=== PATIENT | female | born 2000 | race Caucasian/White ===

== ENCOUNTER 2022-09-27 11:26 | Outpatient (RCR) | payer OTHER, SELFPAY ==
[2022-09-28] MEDS: RHO(D) IMMUNE GLOBULIN 300 MCG/2 ML SYRINGE IM (12:27)
== END 2022-12-26 23:59 | disposition home or self-care (01) ==
LOC: ANHLAB 11:26
PROVIDERS: Visit Provider Obstetrics & Gynecology
DX: Z29.13 Encounter for prophylactic Rho(D) immune globulin (principal); O36.0190 Maternal care for anti-D [Rh] antibodies, unspecified trimester, not applicable or unspecified; Z3A.00 Weeks of gestation of pregnancy not specified
CPT/HCPCS: 36415; 85461; 86850; 86900; 86901; 90384; 96372; J2790

== ENCOUNTER 2022-10-18 11:11 | Outpatient (CLI) | payer OTHER, SELFPAY ==
[2022-10-18 11:31] VITALS: BP 123/74; PULSE 115
[2022-10-18 11:46] VITALS: BP 127/59; PULSE 98
[2022-10-18 12:10] LABS: Basophils Percent Auto 0.3 % (0.2-1.2); Hematocrit 31.6 % (37.0-47.0); Hemoglobin 10.9 g/dL (12.0-15.0); Immature Granulocyte Absolute 0.12 K/mm3 (0.00-0.031); Immature Granulocyte Percent A 0.9 % (0-0.5); Lymphocytes Absolute Auto 1.94 K/mm3 (0.9-3.2); Lymphocytes Percent Auto 13.9 % (18.3-44.2); Mean Corpuscular HGB Conc 34.5 g/dl (32-36); Mean Corpuscular Hemoglobin 31.1 pg (26-34); Mean Corpuscular Volume 90.3 fl (80-100); Mean Platelet Volume 9.1 fl (7.4-10.4); Monocytes Absolute Auto 0.9 K/mm3 (0.1-0.6); Monocytes Percent Auto 6.2 % (2.6-8.5); Neutrophils Percent Auto 78.7 % (45.5-73.1); Platelet Count Result 239 k/mm3 (150-375); Red Cell Distribution Width 13.7 % (11.5-14.5)
[2022-10-18 12:16] LABS: Creatinine Urine 66.1 mg/dL; Total Protein Urine Random 20 mg/dL
[2022-10-18 12:19] LABS: Anion Gap 8 mmol/L (8-16); Blood Urea Nitrogen 6 mg/dL (7-17); Carbon Dioxide 21 mmol/L (22-30); Chloride 106 mmol/L (98-107); Estimated Glomerular Filt Rate > 60; Glucose 107 mg/dL (65-110); Potassium 3.4 mmol/L (3.4-5.0); Sodium 135 mmol/L (137-145)
[2022-10-18 12:20] LABS: Alanine Aminotransferase 28 U/L (6-35); Albumin Level 3.6 g/dL (3.5-5.1); Alkaline Phosphatase 74 U/L (38-126); Aspartate Amino Transferase 25 U/L (14-36); Bilirubin,Total 0.8 mg/dL (0.2-1.3); Calcium 9.8 mg/dL (8.4-10.2); Uric Acid 3.8 mg/dL (2.5-7.5)
[2022-10-18 12:31] LABS: Appearance Urine Turbid (Clear); Bacteria Urine 3+ /hpf; Bilirubin Urine Negative (Negative); Blood Urine Negative (Negative); Color Urine Yellow (Yellow); Glucose Urine UA Negative (Negative); Ketones Urine Negative (Negative); Leukocyte Esterase Ur 1+ LEU/UL (NEGATIVE); Need Manual Microscopic Reviewed; Nitrate Urine Negative (Negative); Protein Urine Negative (Negative); RBC Urine 0-2 /hpf (0-2); Specific Grav Ur 1.011 (1.001-1.035); Squamous Epithelial Cell Urine Many /hpf (Few); Urobilinogen Urine 0.2 mg/dL (<2.0); WBC Urine 21-50 /hpf (0-3); pH Urine 7.5 (5.0-9.0)
[2022-10-18 12:33] LABS: Add Urine Microscopic? YES
--- NOTE | 2022-10-18 12:42 | PC.NURSE ---
Dr Cano notified of lab results and BP's, Ok to [facility].
[2022-10-18 12:43] VITALS: BP 123/74; PULSE 112
--- NOTE | 2022-10-18 12:58 | PM.OBTRLD ---
OB - Triage/Final Diagnosis Visit Information Date of evaluation: 10/18/22 Reason for evaluation: other (Gestational hypertension) Comments/Additional reasons for admission: I have assessed the risk for this patient, Grace Holbrook, and determined that she would benefit from observation care. Evaluation Laboratory results: Laboratory Tests 10/18/22 10/18/22 10/18/22 11:48 11:48 11:48 WBC 14.0 H RBC 3.50 L Hgb 10.9 L Hct 31.6 L MCV 90.3 MCH 31.1 MCHC 34.5 RDW 13.7 Plt Count 239 MPV 9.1 Immature Gran % (Auto) 0.9 H Neut % (Auto) 78.7 H Lymph % (Auto) 13.9 L [place] % (Auto) 6.2 Eos % (Auto) 0.0 Baso % (Auto) 0.3 Lymph # (Auto) 1.94 [place] # (Auto) 0.9 H Eos # (Auto) 0.0 Baso # (Auto) 0.0 Abs Immat Gran (auto) 0.12 H Absolute Neuts (auto) 11.0 H Absolute Nucleated RBC 0.0 Nucleated RBC % 0.0 Sodium Potassium Chloride Carbon Dioxide Anion Gap BUN Creatinine Estim Creat Clear Calc Estimated GFR Glucose Uric Acid Calcium Total Bilirubin AST ALT Alkaline Phosphatase Total Protein Albumin Urine Color Yellow Urine Appearance Turbid H Urine pH 7.5 Ur Specific [place] 1.011 Urine Protein Negative Urine Glucose (UA) Negative Urine Ketones Negative Ur Blood (Man) Negative Urine Nitrate Negative Urine Bilirubin Negative Urine Urobilinogen 0.2 Ur Leukocyte Esterase 1+ H Add Ur Microanalysis Reviewed Urine RBC 0-2 Urine WBC 21-50 Ur Squamous Epith Cells Many H Urine Bacteria 3+ H Urine Casts 6-10 U Random Total Protein 20 Urine Creatinine 66.1 Protein/Creat Ratio 2 0.30 H 10/18/22 11:48 WBC RBC Hgb Hct MCV MCH MCHC RDW Plt Count MPV Immature Gran % (Auto) Neut % (Auto) Lymph % (Auto) [place] % (Auto) Eos % (Auto) Baso % (Auto) Lymph # (Auto) [place] # (Auto) Eos # (Auto) Baso # (Auto) Abs Immat Gran (auto) Absolute Neuts (auto) Absolute Nucleated RBC Nucleated RBC % Sodium 135 L Potassium 3.4 Chloride 106 Carbon Dioxide 21 L Anion Gap 8 BUN 6 L Creatinine 0.40 L Estim Creat Clear Calc Not Reportable Estimated GFR > 60 Glucose 107 Uric Acid 3.8 Calcium 9.8 Total Bilirubin 0.8 AST 25 ALT 28 Alkaline Phosphatase 74 Total Protein 6.0 L Albumin 3.6 Urine Color Urine Appearance Urine pH Ur Specific [place] Urine Protein Urine Glucose (UA) Urine Ketones Ur Blood (Man) Urine Nitrate Urine Bilirubin Urine Urobilinogen Ur Leukocyte Esterase Add Ur Microanalysis Urine RBC Urine WBC Ur Squamous Epith Cells Urine Bacteria Urine Casts U Random Total Protein Urine Creatinine Protein/Creat Ratio 2 Vital signs: Vital Signs - 24 hr 10/18/22 11:31 10/18/22 11:46 10/18/22 12:43 Pulse Rate 115 H 98 112 H Blood Pressure 123/74 127/59 L Blood Pressure [Left Arm] 123/74
== END 2022-10-18 12:43 | disposition home or self-care (01) ==
LOC: ANHOBOP 11:17 → ANHOBPP 11:21
PROVIDERS: Visit Provider Obstetrics & Gynecology
DX: O13.9 Gestational [pregnancy-induced] hypertension without significant proteinuria, unspecified trimester (principal)
CPT/HCPCS: 36415; 59025; 80053; 81001; 82570; 84156; 84550; 85025; 87086; 87088; 99199

== ENCOUNTER 2022-10-25 16:42 | Inpatient (IN) | payer OTHER, SELFPAY ==
[2022-10-25] VITALS (11 sets, daily range): BP systolic 124–150; BP diastolic 82–102; PULSE 88–117; RESP 16; TEMP 36.5–36.8; BMI 35.9
--- NOTE | 2022-10-25 17:03 | LDADM ---
This patient, Grace Holbrook, was admitted to Labor/Delivery/Recovery 109 on 10/25/22 at 16:42. Plans for labor, pain management and were discussed with patient. Patient/family oriented to hospital policies and general routines including ID bracelet, bed and alarms, visiting hours, pain management, procedures, bathroom and other care routines, personal items, smoking policy, room service/diet and guest tray routines, security routines, and visiting hours. Patient/Family are encouraged to report perceived risks to care and to ask questions if they do not understand what they are told or what they should do. See OBIX for further documentation.
--- NOTE | 2022-10-25 17:20 | P.PNAN_ITS ---
Anes - Eval Pre Procedure Procedure: Labor epidural Date/Time: 10/25/22 17:20 Pre Op Diagnosis: Induction of Labor Patient Data Age: 22 Gender: F Height: 1.63 m Weight: 95 kg Last Vital Signs Pulse 117 H 10/25/22 16:59 BP 133/92 H 10/25/22 16:59 O2 Del Method Room Air 10/25/22 17:00 Allergies Allergy/AdvReac Type Severity Reaction Status Date / Time clindamycin Allergy Rash Verified 10/25/22 17:09 Home Medications Medication Instructions Recorded Confirmed Type labetalol 200 mg tablet 200 mg PO Q8H 10/05/22 10/05/22 History nifedipine 10 mg capsule 10 mg PO Q8H 10/05/22 10/05/22 History vit no.95-ferrous 1 tablet PO DAILY 10/05/22 10/05/22 History fumarate 28 mg-folic acid 800 mcg tablet () albuterol sulfate 90 mcg/actuation inhalation 10/25/22 History aerosol inhaler Patient hx anesthesia problems: none Family hx anesthesia problems: none Results Review: All pre-operative results and documents have been reviewed as part of the pre- operative evaluation. [facility] Past Medical History Medical History Asthma Bronchitis Eczema PIH ( induced hypertension) Scoliosis Family History Family History Father Hypertension Mother Hypertension Grandparent Breast cancer in female Dementia Diabetes mellitus Social History Social History Smoking status: Former smoker Tobacco type: cigarettes Smoking end date: 03/10/23 Substance use: former Last use: 03/2023 Lack of Transportation: No Lack of Food: Never True Current Housing: I Have Housing Concerned About Future Housing: No Difficulty Paying Gas/Electric Bills: No Difficulty Paying for Meds: No Currently Unemployed: No Education: High School Diploma/GED Difficulty w/ Childcare or Family Care: No Spiritual care concerns: No Exam Day of Procedure 10/25/22 17:20 Patient weight: obese Heart: regular rate and rhythm Lungs: normal air movement Airway: Mallampati scale Neurological: alert and oriented
[2022-10-25 17:43] LABS: Basophils Absolute Auto 0.1 K/mm3 (0.0-0.1); Basophils Percent Auto 0.4 % (0.2-1.2); Hematocrit 31.8 % (37.0-47.0); Hemoglobin 11.1 g/dL (12.0-15.0); Immature Granulocyte Absolute 0.16 K/mm3 (0.00-0.031); Immature Granulocyte Percent A 1.1 % (0-0.5); Lymphocytes Absolute Auto 2.31 K/mm3 (0.9-3.2); Lymphocytes Percent Auto 16.3 % (18.3-44.2); Mean Corpuscular HGB Conc 34.9 g/dl (32-36); Mean Corpuscular Hemoglobin 30.8 pg (26-34); Mean Corpuscular Volume 88.3 fl (80-100); Mean Platelet Volume 9.2 fl (7.4-10.4); Monocytes Absolute Auto 0.9 K/mm3 (0.1-0.6); Neutrophils Absolute Auto 10.8 K/mm3 (1.3-6.7); Neutrophils Percent Auto 76.2 % (45.5-73.1); Platelet Count Result 229 k/mm3 (150-375); Red Cell Distribution Width 13.6 % (11.5-14.5); White Blood Count 14.2 K/mm3 (4.5-10.0)
[2022-10-25] MEDS: DINOPROSTONE 10 MG VAG INSERT VAGINAL (17:45)
[2022-10-25 17:52] LABS: Alanine Aminotransferase 43 U/L (6-35); Albumin Level 3.7 g/dL (3.5-5.1); Alkaline Phosphatase 84 U/L (38-126); Anion Gap 7 mmol/L (8-16); Aspartate Amino Transferase 32 U/L (14-36); Bilirubin,Total 0.9 mg/dL (0.2-1.3); Blood Urea Nitrogen 6 mg/dL (7-17); Calcium 9.5 mg/dL (8.4-10.2); Carbon Dioxide 22 mmol/L (22-30); Chloride 106 mmol/L (98-107); Estimated CRCL calculation 197 ml/min; Estimated Glomerular Filt Rate > 60; Glucose 97 mg/dL (65-110); Potassium 3.6 mmol/L (3.4-5.0); Sodium 135 mmol/L (137-145)
[2022-10-25] MEDS: LABETALOL HCL 100 MG TABLET 200 MG PO (22:21)
[2022-10-26] VITALS (244 sets, daily range): BP systolic 101–149; BP diastolic 41–108; PULSE 49–144; RESP 16–18; TEMP 36.2–37.3; O2SAT 82–100
[2022-10-26 04:39] LABS: Uric Acid 3.7 mg/dL (2.5-7.5)
[2022-10-26] MEDS: AMPICILLIN 2 GM/NS 100 ML 2 GM/100 ML BAG IVPB (05:58)
[2022-10-26] MEDS: LACTATED RINGERS 1,000 ML 125 ML IV CONT ×4 (05:58→22:19)
[2022-10-26] MEDS: OXYTOCIN 30 UNITS/NS 500 ML 30 UNITS/500 ML BAG 6 UNITS IV CONT (05:59)
[2022-10-26] MEDS: LABETALOL HCL 100 MG TABLET 200 MG PO ×3 (06:01→22:05)
--- NOTE | 2022-10-26 06:06 | PM.IMHP ---
H&P: HPI History of Present Illness Date/Time: 10/26/22 06:06 Chief Complaint: Hypertension at 3667 weeks Narrative: this is the result room if admitted at 36 and 6 7th weeks gestation admitted for were induction of labor secondary to elevated blood pressures. She has been on labetalol and the had nifedipine added. Her pressures are high and she is feeling protein. She has a mildly elevated blood pressure PI labs were normal. Group B strep screen is pending [facility] Past Medical History Medical History Asthma Bronchitis Eczema PIH ( induced hypertension) Scoliosis Family History Family History Father Hypertension Mother Hypertension Grandparent Breast cancer in female Dementia Diabetes mellitus Social History Social History Smoking status: Former smoker Tobacco type: cigarettes Smoking end date: 03/10/23 Substance use: former Last use: 03/2023 Lack of Transportation: No Lack of Food: Never True Current Housing: I Have Housing Concerned About Future Housing: No Difficulty Paying Gas/Electric Bills: No Difficulty Paying for Meds: No Currently Unemployed: No Education: High School Diploma/GED Difficulty w/ Childcare or Family Care: No Spiritual care concerns: No Meds Home Medications and Allergies Home Medications Medication Instructions Recorded Confirmed Type labetalol 200 mg tablet 200 mg PO Q8H 10/05/22 10/25/22 History nifedipine 10 mg capsule 10 mg PO Q8H 10/05/22 10/25/22 History vit no.95-ferrous 1 tablet PO DAILY 10/05/22 10/25/22 History fumarate 28 mg-folic acid 800 mcg tablet () albuterol sulfate 90 mcg/actuation inhalation 10/25/22 History aerosol inhaler Allergies Allergy/AdvReac Type Severity Reaction Status Date / Time clindamycin Allergy Rash Verified 10/25/22 17:09 Vital Signs Vital Signs - 24 hr 10/25/22 17:00 10/25/22 16:59 10/25/22 18:00 Temperature Pulse Rate 117 H 88 Respiratory Rate Blood Pressure 133/92 H 149/99 H Oxygen Delivery Room Air 10/25/22 18:15 10/25/22 18:30 10/25/22 18:45 Temperature 98.3 F Pulse Rate 95 97 97 Respiratory Rate 16 Blood Pressure 150/101 H 137/102 H 124/91 H Oxygen Delivery 10/25/22 19:00 10/25/22 19:15 10/25/22 19:30 Temperature Pulse Rate 97 92 92 Respiratory Rate Blood Pressure 134/83 132/85 132/87 Oxygen Delivery 10/25/22 19:45 10/25/22 19:58 10/25/22 22:21 Temperature 97.7 F Pulse Rate 106 H 94 92 Respiratory Rate 16 Blood Pressure 132/91 H 131/84 126/82 Oxygen Delivery 10/26/22 01:12 10/26/22 05:18 10/26/22 05:20 Temperature 98.4 F 97.7 F Pulse Rate 92 91 Respiratory Rate 16 18 Blood Pressure 122/70 138/94 H Oxygen Delivery 10/25/22 19:01 10/25/22 22:21 10/26/22 06:01 Temperature Pulse Rate 92 100 Respiratory Rate Blood Pressure Oxygen Delivery Room Air Exam Const: General: cooperative, healthy appearing and comfortable Nutritional Appearance: overweight Orientation/consciousness: oriented to person, oriented to place and oriented to time HENMT: Head: normal to inspection Resp: Effort & Inspection: normal respiratory effort Cardio: Rate: regular rate Rhythm: regular rhythm Heart sounds: S1 normal heart sound present and S2 normal heart sound present GI: Inspection: normal to inspection ( gravid soft uterus) : External Female Exam: normal external appearance Speculum Exam - Vagina: normal appearance of the vagina Speculum Exam - Cervix: normal appearance of the cervix ( 1/2cm/ 50%/ -2. AROM minimal clear fluid. FHTs reassuring) H&P: Results Labs Labs: Short CBC 10/25/22 Range/Units 17:04 WBC 14.2 H (4.5-10.0) K/mm3 Hgb 11.1 L (12.0-15.0) g/dL Hct 31.8 L (
[2022-10-26 07:20] LABS: Rapid Plasma Reagin Non-Reactive (NonReactive)
[2022-10-26] MEDS: AMPICILLIN 1 GM/NS 50 ML 1 GM/50 ML BAG IVPB ×4 (10:18→22:05)
--- NOTE | 2022-10-26 12:40 | PM.OBPNLAB ---
Pain Control Date/time seen: 10/26/22 12:40 Pain control: tolerating well Comments: bp labile Pelvic Exam Dilation (cm): 1 Effacement (%): 50 station: -2 Amniotic membrane status: Leaking Contractions Monitor mode: Internal
[2022-10-26] MEDS: fentaNYL CITRATE INJ (*CRX) 100 MCG/2 ML VIAL IV PUSH (13:17)
--- NOTE | 2022-10-26 16:07 | PM.OBPNLAB ---
Pain Control Date/time seen: 10/26/22 16:07 Pain control: tolerating well and epidural Pelvic Exam Dilation (cm): 2 Effacement (%): 50 station: -2 Amniotic membrane status: Leaking Contractions Monitor mode: Internal Contraction pattern: Regular
[2022-10-27] VITALS (108 sets, daily range): BP systolic 103–150; BP diastolic 53–109; PULSE 86–145; RESP 16–18; TEMP 36.9–37.2; O2SAT 96–100
[2022-10-27] MEDS: AMPICILLIN 1 GM/NS 50 ML 1 GM/50 ML BAG IVPB (02:25)
--- NOTE | 2022-10-27 05:54 | PM.OBPRVD ---
OB - Delivery Note Procedure Delivery date: 10/27/22 Procedure: mil Events: Chronic Hypertension Induction method: AROM and Per Cervidil Protocol Delivery augmentation: Pitocin Delivery monitor: External FHT and Internal FHT Route of delivery: Laceration Description: Perineal - 2nd Degree Delivery repair: vicryl Specimen: No Quantitative Blood Loss (ml): 60 Anesthesia type: Epidural Disposition: Floor Baby Date of : 10/27/22 Time of : 05:41 Weeks of gestation at delivery: 37 Infant gender: Female presentation: vertex position: Right Occiput Anterior Placenta delivery description: Spontaneous Cord Vessel Description: 3 Vessels, Nuchal Cord, Loose and Delayed Cord Clamping score one minute: 8 score five minutes: 9 Narrative: amp x 6 unknown gbs
[2022-10-27] MEDS: OXYTOCIN 30 UNITS/NS 500 ML 30 UNITS/500 ML BAG 125 UNITS IV CONT (06:19)
[2022-10-27] MEDS: IBUPROFEN 600 MG TABLET PO ×2 (06:28→16:43)
[2022-10-27] MEDS: BENZOCAINE 20% AER SPR (*SP) 56 GM CAN 1 SPRAY TOPICAL (06:29)
[2022-10-27] MEDS: WITCH HAZEL 40 PADS 1 PAD TOPICAL (06:29)
[2022-10-27] MEDS: ACETAMINOPHEN 325 MG TABLET 650 MG PO (07:31)
--- NOTE | 2022-10-27 08:20 | OBPPTRN ---
Patient transferred to post room #281 via wheelchair. Support person present. Oriented to unit, room, information board, rooming in, admission packet and security measures. Patient verbalizes understanding.
[2022-10-27] MEDS: DOCUSATE SODIUM 100 MG CAPSULE PO ×2 (09:11→16:43)
[2022-10-28 04:10] VITALS: BP 117/76; PULSE 82; RESP 16; TEMP 37; O2SAT 98
[2022-10-28 05:55] LABS: Hematocrit 29.5 % (37.0-47.0); Hemoglobin 9.9 g/dL (12.0-15.0)
[2022-10-28] MEDS: IBUPROFEN 600 MG TABLET PO ×4 (07:50→22:57)
[2022-10-28] MEDS: POLYSACCHARIDE IRON COMPLEX 150 MG CAPSULE PO ×2 (07:51→17:20)
[2022-10-28] MEDS: DOCUSATE SODIUM 100 MG CAPSULE PO ×2 (07:52→17:20)
[2022-10-28 07:55] VITALS: BP 126/92; PULSE 70; RESP 18; TEMP 36.6; O2SAT 100
[2022-10-28 08:00] VITALS: PULSE 70; RESP 18; O2SAT 100
--- NOTE | 2022-10-28 08:06 | PM.OBPNVD ---
OB - PN: Subj Subjective Date/time seen: 10/28/22 08:06 Patient comments: no complaints and pain well controlled baby status: doing well and bottle feeding well OB - PN: Obj Data Labs 10/28/22 05:03 10/25/22 17:04 Labs: Laboratory Results - last 24 hr 10/28/22 10/28/22 05:03 05:03 Hgb 9.9 L Hct 29.5 L Blood Type O Negative OB - PN A/P Plan day: 1 Plan: routine care Time Spent With Patient Time: Total time spent is greater than 50% in coordination of care (as documented) at patient's floor/unit and/or counseling patient: Time with patient: less than 15 minutes Exam Const: General: cooperative, healthy appearing and comfortable Nutritional Appearance: overweight Orientation/consciousness: oriented to person, oriented to place and oriented to time HENMT: Head: normal to inspection Resp: Effort & Inspection: normal respiratory effort Cardio: Rate: regular rate Rhythm: regular rhythm Heart sounds: S1 normal heart sound present and S2 normal heart sound present GI: Inspection: normal to inspection (Fundus firm below the umbilicus)
--- NOTE | 2022-10-28 08:09 | PM.DS ---
DS: Admitting Diagnosis Discharge Date 10/29 Admitting Diagnosis gestational hypertension /term DS: Discharge Diagnosis Discharge Diagnosis (1) Gestational hypertension: Code(s): O13.9 - Gestational [-induced] hypertension without significant proteinuria, unspecified trimester Status: Acute DS: Summary Hospital Course Reason for hospitalization: patient was admitted at 37 weeks gestation for induction of labor secondary to elevated blood pressures. Hospital Course: Patient underwent successful medical induction of labor. Her 48hour course was relatively unremarkable. Her blood pressure was relatively stable. She remained afebrile. She was up, bottle feeding, ambulating, voiding without difficulty, and general without complaints. Time Spent with Patient Time attestation: Total time spent providing and/or coordinating discharge services: Exam Const: General: cooperative, healthy appearing and comfortable Nutritional Appearance: overweight Orientation/consciousness: oriented to person, oriented to place and oriented to time HENMT: Head: normal to inspection Resp: Effort & Inspection: normal respiratory effort Cardio: Rate: regular rate Rhythm: regular rhythm Heart sounds: S1 normal heart sound present and S2 normal heart sound present GI: Inspection: normal to inspection ( Fundus firm below the umbilicus) Auscultation: normal bowel sounds DS: Data Data Completed and Pending Labs on day of discharge: Labs from last 24 hours 10/28/22 10/28/22 05:03 05:03 Hgb 9.9 L Hct 29.5 L Blood Type O Negative Antibody Screen Pending Screen Pending Baby's Blood Type Pending Baby's [place] Pending Doses of RhIg Required Pending Discharge Plan Discharge Attending physician on discharge: Noe Mann Discharging Clinician: Noe Mann Patient Disposition: Home, Self-Care Activity: may shower and pelvic rest Diet: heart healthy Wound Care Instructions: follow printed instructions Discharge Instructions: Education: Mom and Baby Guide Given to: Mother Follow-Up: Call your delivering provider's office for an appointment to be seen in: Call office after follow-up visit on 10/29/22, to set up follow-up appt with Dr. Caon's office. Mom and baby should come to [facility] for the follow-up appointment. Appointment Date/Time: October 31, 2022 at 11:00 am What to expect at your follow-up visit: Blood Pressure Check Call [phone] if you are unable to keep your appointment time. BREAST CARE: * Wear a snug supportive bra. * For engorgement discomfort: Bottle Feeding: * May apply ice packs EPISIOTOMY/PERINEAL CARE: * Until bleeding stops, use your malcolm bottle after urinating * Change your pad frequently throughout the day * You may take sitz baths several times a day (fill your bathtub with warm water and soak for 20 minutes.) Do NOT bathe in the water * No tub baths until seen by your physician - You may shower ACTIVITY: * Rest as much as possible. * Do not exercise or lift anything heavier than your baby (such as laundry or other children.) * Avoid stairs or driving as much as possible. * Do not put anything into the vagina. No douching, tampons, or sexual activity until seen by physician. NOTIFY PHYSICIAN IF YOU HAVE ANY QUESTIONS OR IF ANY OF THE FOLLOWING SYMPTOMS OCCUR: * If your episiotomy or incision becomes red, swollen, or more painful than what you have experienced in the hospital. * If your vaginal bleeding becomes foul smelling. * If your vaginal bleeding becomes more heavy than a period or if your bleeding changes from pink to bright red. However, you may pass an occasional walnut-sized clot once or twice for the first week . * If you experience a sharp, shooting pain in you calves. * If you discover a hard, reddened area on your
--- NOTE | 2022-10-28 10:09 | WPDANLDPN2 ---
Anes-Prog Note L&D Date/Time: 10/28/22 10:09 Comfortable throughout: labor and delivery Neuraxial method: epidural Epidural/Spinal procedure site: clean & non-tender Neuro status: Neuro function grossly intact. Cardiovascular status: normal Respiratory status: normal Airway patency: baseline Mental status: baseline Post-Op hydration status: normal Vital Signs: Last Vital Signs Temp 36.6 C 10/28/22 07:55 Pulse 70 10/28/22 07:55 Resp 18 10/28/22 07:55 BP 126/92 H 10/28/22 07:55 Pulse Ox 100 10/28/22 07:55 O2 Del Method Room Air 10/27/22 20:10 Pain score (VAS): 07/19 I/O: Intake & Output 10/27/22 10/28/22 10/28/22 23:59 07:59 15:59 Intake Total 550 275 Output Total 590 590 Balance -40 -315 Post-procedural complaints: none Patient feedback: Patient satisfied with anesthetic care.
[2022-10-28] MEDS: TETANUS,DIPHTHERIA,AC PERTUSSIS ADULT (0.5 ML) BOOSTRIX IM (11:28)
[2022-10-28] MEDS: RHO(D) IMMUNE GLOBULIN 300 MCG/2 ML SYRINGE IM (11:30)
[2022-10-28 20:00] VITALS: BP 153/90; PULSE 85; RESP 16; TEMP 37; O2SAT 100
[2022-10-28 21:55] VITALS: BP 140/87
[2022-10-29 08:05] VITALS: BP 135/84; PULSE 82; RESP 16; TEMP 36.8; O2SAT 99
[2022-10-29] MEDS: DOCUSATE SODIUM 100 MG CAPSULE PO (08:11)
[2022-10-29] MEDS: POLYSACCHARIDE IRON COMPLEX 150 MG CAPSULE PO (08:11)
--- NOTE | 2022-10-29 10:27 | PM.OBPNVD ---
OB - PN: Subj Subjective Date/time seen: 10/29/22 10:27 Narrative: Pain OK. Would like to go home. OB - PN: Obj Data Labs 10/28/22 05:03 10/25/22 17:04 Labs: Laboratory Results - last 24 hr 10/28/22 05:03 Blood Type O Negative Antibody Screen TNP Screen Negative Baby's Blood Type O pos Baby's [place] Positive Doses of RhIg Required 1 OB - PN A/P Plan Comments: A: PPD#2, doing well. P: Home to f/u 6 weeks. Exam Psych: Other: AVSS ABD soft, nontender, fundus firm EXT nontender
[2022-10-29] MEDS: IBUPROFEN 600 MG TABLET PO (11:20)
[2022-10-31 10:54] VITALS: BP 138/94; PULSE 94; RESP 20; TEMP 37.2; O2SAT 100
== END 2022-10-29 14:04 | disposition home or self-care (01) | DRG 807 ==
LOC: ANHOB2 10-29 12:46 → ANHLDR 10-31 10:09 → ANHOB2 10-31 10:09
PROVIDERS: Admitting Provider Obstetrics & Gynecology; Visit Provider Obstetrics & Gynecology
DX: O13.4 Gestational [pregnancy-induced] hypertension without significant proteinuria, complicating childbirth (principal); Z37.0 Single live birth; O70.1 Second degree perineal laceration during delivery; O69.81X0 Labor and delivery complicated by cord around neck, without compression, not applicable or unspecified; O99.52 Diseases of the respiratory system complicating childbirth; J45.909 Unspecified asthma, uncomplicated; Z3A.36 36 weeks gestation of pregnancy; Z87.891 Personal history of nicotine dependence
CPT/HCPCS: 36415; 80053; 84550; 85014; 85018; 85025; 85461; 86592; 86850; 86880; 86900; 86901; 86902; 90384; 90715; A9270; J0290; J2590; J2790; J2795; J3010; J7120

== ENCOUNTER 2022-10-26 10:30 | Outpatient (RCR) | payer OTHER, SELFPAY ==
[2022-10-05 10:10] VITALS: BP 124/82; PULSE 98
[2022-10-12 13:53] VITALS: BP 110/64; PULSE 120
== END 2023-01-03 23:59 | disposition home or self-care (01) ==
LOC: ANHOBOP 10:30
PROVIDERS: Visit Provider Obstetrics & Gynecology
DX: O16.3 Unspecified maternal hypertension, third trimester (principal); Z3A.33 33 weeks gestation of pregnancy; Z3A.34 34 weeks gestation of pregnancy
CPT/HCPCS: 59025